=== PATIENT | male | born 1965 | race Hispanic/Latino ===

== ENCOUNTER 2018-01-18 10:06 | Inpatient (IN) | payer BC, OTHER ==
[2018-01-18] MEDS ORDERED: HEPA 1000U/500MLS 1,000 UNIT/500 ML BAG IV ONE ×2 (10:18→11:59)
[2018-01-18] MEDS ORDERED: HEPARIN/D5W 25,000 UNIT/500 ML BAG IV ONE (10:18)
[2018-01-18] MEDS ORDERED: NICARDIPINE HCL 25 MG/10 ML IV ONE (10:18)
[2018-01-18] MEDS ORDERED: HEPARIN 5000 UNIT/ML 1 ML VIAL ONE ×2 (10:18)
[2018-01-18] MEDS ORDERED: NA CHLORIDE 0.9% 0 ML ONE (10:18)
[2018-01-18] MEDS ORDERED: ASPIRIN 81 MG CHEWABLE TABLET ONE (10:20)
[2018-01-18] MEDS ORDERED: NA CHLORIDE 0.9% 1,000 ML ONE (10:20)
--- NOTE | 2018-01-18 10:20 | EDPHYS ---
Physician Documentation [facility] Name: Calos Oliveira Age: 52 yrs Sex: Male : 1965 Arrival Date: 01/18/2018 Time: 10:07 Bed 4 Private MD: Out, [facility] ED Physician Earle Hooper HPI: 01/18 10:14 This 52 yrs old Male presents to ER via Unassigned with complaints of Chest hank Pain > 30 y/o. 10:14 The patient or guardian reports chest pain that is located primarily in the substernal hank area. Onset: just prior to arrival. The pain does not radiate. Associated signs and symptoms: The patient has no apparent associated signs or symptoms. The chest pain is described as a heaviness, a pressure. Duration: The patient or guardian reports a single episode, that is still ongoing. Modifying factors: The symptoms are alleviated by nothing. the symptoms are aggravated by nothing. Severity of pain: At its worst the pain was moderate in the emergency department the pain is unchanged. The patient has not experienced similar symptoms in the past. Historical: - Allergies: 10:18 No Known Allergies; ss - PMHx: 10:18 CAD; High Cholesterol; Hypertension; ss - Immunization history:: Adult Immunizations up to date. - Social history:: The patient lives Smoking status: Patient/guardian denies using tobacco. - Ebola Screening: : Patient denies exposure to infectious person Patient denies travel to an Ebola-affected area in the 21 days before illness onset. ROS: 10:14 Constitutional: Negative for fever, chills, and weight loss, Eyes: Negative for injury, hank pain, redness, and discharge, ENT: Negative for injury, pain, and discharge, Neck: Negative for injury, pain, and swelling, Respiratory: Negative for shortness of breath, cough, wheezing, and pleuritic chest pain, Abdomen/GI: Negative for abdominal pain, nausea, vomiting, diarrhea, and constipation, Back: Negative for injury and pain, : Negative for injury, bleeding, discharge, and swelling, MS/Extremity: Negative for injury and deformity, Skin: Negative for injury, rash, and discoloration, Neuro: Negative for headache, weakness, numbness, tingling, and seizure, Psych: Negative for depression, anxiety, suicide ideation, homicidal ideation, and hallucinations, Allergy/Immunology: Negative for hives, rash, and allergies, Endocrine: Negative for neck swelling, polydipsia, polyuria, polyphagia, and marked weight changes, Hematologic/Lymphatic: Negative for swollen nodes, abnormal bleeding, and unusual bruising. 10:14 Cardiovascular: Positive for chest pain, of the chest. Exam: 10:14 Constitutional: This is a well developed, well nourished patient who is awake, alert, hank and in no acute distress. Head/Face: Normocephalic, atraumatic. Eyes: Pupils equal round and reactive to light, extra-ocular motions intact. Lids and lashes normal. Conjunctiva and sclera are non-icteric and not injected. Cornea within normal limits. Periorbital areas with no swelling, redness, or edema. ENT: Nares patent. No nasal discharge, no septal abnormalities noted. Tympanic membranes are normal and external auditory canals are clear. Oropharynx with no redness, swelling, or masses, exudates, or evidence of obstruction, uvula midline. Mucous membranes moist. Neck: Trachea midline, no thyromegaly or masses palpated, and no cervical lymphadenopathy. Supple, full range of motion without nuchal rigidity, or vertebral point tenderness. No Meningismus. Chest/axilla: Normal chest wall appearance and motion. Nontender with no deformity. No lesions are appreciated. Cardiovascular: Regular rate and rhythm with a normal S1 and S2. No gallops, murmurs, or rubs. Normal PMI, no JVD. No pulse deficits. Respiratory: Lungs have equal breath sounds bilaterally, clear to auscultation and percussion. No rales, rhonchi or wheezes noted. No increased work of breathing, no retractions or nasal flaring. Abdomen/GI: Soft, non-tender, with normal bowel sounds. No distension or tympany. No guarding or rebound. No evidence of tenderness throughout. Back: No spinal tenderness. No costovertebral tenderness. Full range of motion. Male : Normal genitalia with no discharge or lesions. Skin: Warm, dry with normal turgor. Normal color with no rashes, no lesions, and no evidence of cellulitis. MS/ Extremity: Pulses equal, no cyanosis. Neurovascular intact. Full, normal range of motion. Neuro: Awake and alert, GCS 15, oriented to person, place, time, and situation. Cranial nerves II-XII grossly intact. Motor strength 5/5 in all extremities. Sensory grossly intact. Cerebellar exam normal. Normal gait. Psych: Awake, alert, with orientation to person, place and time. Behavior, mood, and affect are within normal limits. Vital Signs: 10:11 Weight 108.86 kg; Height 5 ft. 7 in. (170.18 cm); Pain 8/10; ss 10:17 BP 177 / 117; Pulse 85; Resp 18; Pulse Ox 100% on 2 lpm NC; hj 10:40 BP 161 / 99; Pulse 88; Resp 22; Pulse Ox 100% on 2 lpm NC; Pain 6/10; sv 10:11 Body Mass Index 37.59 (108.86 kg, 170.18 cm) ss MDM: 10:11 Patient medically screened. [facility] 10:14 Data reviewed: vital signs, nurses notes, lab test result(s), EKG, radiologic studies, hank plain films. 01/18 10:14 Order name: Basic Metabolic Panel [facility] 01/18 10:14 Order name: CBC with Diff [facility] 01/18 10:14 Order name: Ckmb [facility] 01/18 10:14 Order name: CPK [facility] 01/18 10:14 Order name: LFT's [facility] 01/18 10:14 Order name: Magnesium [facility] 01/18 10:14 Order name: NT PRO-BNP [facility] 01/18 10:14 Order name: PT-INR [facility] 01/18 10:14 Order name: Ptt, Activated [facility] 01/18 10:14 Order name: Troponin (emerg Dept Use Only) [facility] 01/18 10:14 Order name: XRAY Chest (1 view) [facility] 01/18 10:48 Order name: RAD EDAR 01/18 10:14 Order name: EKG; Complete Time: 10:15 [facility] 01/18 10:14 Order name: Cardiac monitoring [facility] 01/18 10:14 Order name: EKG - Nurse/Tech [facility] 01/18 10:14 Order name: IV Saline Lock [facility] 01/18 10:14 Order name: Labs collected and sent [facility] 01/18 10:14 Order name: O2 Per Protocol [facility] 01/18 10:14 Order name: O2 Sat Monitoring [facility] 01/18 10:14 Order name: Urine Dipstick-Ancillary (obtain specimen) [facility] 01/18 10:25 Order name: CONS Physician Consult EDMS Administered Medications: 10:20 Drug: NS 0.9% 1000 ml Route: IV; Rate: 1 bolus; Site: left antecubital; sv 10:20 Drug: Aspirin Chewable Tablet 324 mg Route: PO; sv 10:20 Drug: Heparin ([place]-Bolus No thrombolytic) - HEParin 60 units/kg {Co-Signature: ss sv (Aretha Pearson RN).} Route: IVP; Site: left antecubital; 10:20 Drug: Heparin ([place] Drip) 12 units/kg/hr - (HEParin 72066 units, D5W 500 ml) sv {Co-Signature: ss (Aretha Pearson RN).} Route: IV; Rate: calculated rate; Site: left antecubital; 10:28 Drug: Zofran 4 mg Route: IVP; Site: right antecubital; sv 10:30 Drug: morphine 4 mg Route: IVP; Site: right antecubital; sv 10:34 Drug: Effient 60 mg Route: PO; sv Disposition: 01/18/18 10:20 Hospitalization ordered by Sammi Abraham for Inpatient Admission. Preliminary diagnosis is ST elevation (STEMI) myocardial infarction of inferior wall. - Bed requested for Intensive Care Unit. - Status is Inpatient Admission. sv - Condition is Serious. - Problem is new. - Symptoms have improved. UTI on Admission? No Signatures: Dispatcher [employer] EDMS Gisselle Woodward RN RN sv Anderson, Corey, MD MD cha Smirch, Shelby, RN RN ss Aretha Pearson RN ss Corrections: (The following items were deleted from the chart) 10:53 10:20 Hospitalization Ordered by Sammi Abraham MD for Inpatient Admission. Preliminary sv diagnosis is ST elevation (STEMI) myocardial infarction of inferior wall. Bed requested for Intensive Care Unit. Status is Inpatient Admission. Condition is Serious. Problem is new. Symptoms have improved. UTI on Admission? No. hank
--- NOTE | 2018-01-18 10:20 | ER ---
Nurse's Notes [facility] Name: Calos Oliveira Age: 52 yrs Sex: Male : 1965 Arrival Date: 01/18/2018 Time: 10:07 Bed 4 Private MD: Out, [facility] Diagnosis: ST elevation (STEMI) myocardial infarction of inferior wall Presentation: 01/18 10:08 Presenting complaint: Patient states: substernal chest pain that began approx 45 ss minutes ago. Pt reports a history of cardiac stents and states that he has taken 81mg ASA, blood pressure and cholesterol medication today. Transition of care: patient was not received from another setting of care. Onset of symptoms was January 18, 2018. Risk Assessment: Do you want to hurt yourself or someone else? Patient reports no desire to harm self or others. Initial Sepsis Screen: Does the patient meet any 2 criteria? No. Patient's initial sepsis screen is negative. Does the patient have a suspected source of infection? No. Patient's initial sepsis screen is negative. Care prior to arrival: None. 10:08 Method Of Arrival: Ambulatory ss 10:08 Acuity: PATRICIA 1 ss Historical: - Allergies: 10:18 No Known Allergies; ss - PMHx: 10:18 CAD; High Cholesterol; Hypertension; ss - Immunization history:: Adult Immunizations up to date. - Social history:: The patient lives Smoking status: Patient/guardian denies using tobacco. - Ebola Screening: : Patient denies exposure to infectious person Patient denies travel to an Ebola-affected area in the 21 days before illness onset. Screenin:20 Abuse screen: Denies threats or abuse. Denies injuries from another. Nutritional sv screening: No deficits noted. Tuberculosis screening: No symptoms or risk factors identified. Fall Risk None identified. Assessment: 10:08 General: Appears distressed, uncomfortable, obese, Behavior is cooperative, Denies ss fever, feeling ill. Pain: Complains of pain in chest Pain does not radiate. Pain currently is 8 out of 10 on a pain scale. 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 Cardiovascular: Pulses are palpable in right radial artery and left radial artery. Respiratory: Airway is patent Trachea midline Respiratory effort is even, labored, Respiratory pattern is symmetrical, tachypnea. GI: Patient currently denies abdominal pain, diarrhea, nausea, vomiting. GI: Abdomen is round non-distended. EENT: Oral mucosa is moist. Throat is clear. Derm: Skin is clammy, Skin temperature is cool. 10:20 General: Appears distressed, uncomfortable, well developed, Behavior is cooperative. sv Pain: Complains of pain in chest Pain currently is 9 out of 10 on a pain scale. Quality of pain is described as sharp, Is continuous. Neuro: Level of Consciousness is awake, alert, obeys commands, Oriented to person, place, time, situation, Moves all extremities. Full function. Cardiovascular: Patient's skin is warm and dry. Pulses are 3+ in right radial artery and left radial artery. Respiratory: Respiratory effort is even, labored, Respiratory pattern is symmetrical, tachypnea. Derm: Skin is normal. Musculoskeletal: Range of motion: intact in all extremities. 10:48 Reassessment: Patient appears in no apparent distress at this time. Patient and/or sv family updated on plan of care and expected duration. Pain level reassessed. Patient is alert, oriented x 3, equal unlabored respirations, skin warm/dry/pink. Pain: Pain currently is 6 out of 10 on a pain scale. Vital Signs: 10:11 Weight 108.86 kg; Height 5 ft. 7 in. (170.18 cm); Pain 8/10; ss 10:17 BP 177 / 117; Pulse 85; Resp 18; Pulse Ox 100% on 2 lpm NC; hj 10:40 BP 161 / 99; Pulse 88; Resp 22; Pulse Ox 100% on 2 lpm NC; Pain 6/10; sv 10:11 Body Mass Index 37.59 (108.86 kg, 170.18 cm) ED Course: 10:07 Patient arrived in ED. sb2 10:07 Out, [facility] is Private Physician. sb2 10:11 Earle Hooper MD is Attending Physician. hank 10:17 Triage completed. 10:17 Initial lab(s) drawn, by me, sent to lab. Inserted saline lock: 22 gauge in left hj antecubital area, using aseptic technique. Blood collected. 10:19 Sammi Abraham MD is Hospitalizing Provider. hank 10:20 Missed attempt(s): 20 gauge in right antecubital area. mh5 10:20 Oxygen administration via nasal cannula \T\ 2L/min. sv 10:20 Arm band placed on right wrist. sv 10:22 Gisselle Woodward RN is Primary Nurse. sv 10:22 Inserted saline lock: 20 gauge in right antecubital area, using aseptic technique. sv ,using aseptic technique. done by Aretha MIX. 10:22 EKG done, by manager technology. reviewed by Earle Hooper MD. at1 10:25 Patient has correct armband on for positive identification. Placed in gown. Bed in low mh5 position. Call light in reach. Side rails up X 1. Adult w/ patient. conveyor monitor on. Pulse ox on. NIBP on. 10:36 X-ray completed. Portable x-ray completed in exam room. Patient tolerated procedure mh1 well. 10:45 Surgical consent explained by staff, explained by physician, signed by patient. sv 10:50 No provider procedures requiring assistance completed. Patient admitted, IV remains in sv place. intact. Administered Medications: 10:20 Drug: NS 0.9% 1000 ml Route: IV; Rate: 1 bolus; Site: left antecubital; sv 10:20 Drug: Aspirin Chewable Tablet 324 mg Route: PO; sv 10:20 Drug: Heparin ([place]-Bolus No thrombolytic) - HEParin 60 units/kg {Co-Signature: ss sv (Aretha Pearson RN).} Route: IVP; Site: left antecubital; 10:20 Drug: Heparin ([place] Drip) 12 units/kg/hr - (HEParin 81927 units, D5W 500 ml) sv {Co-Signature: ss (Aretha Pearson RN).} Route: IV; Rate: calculated rate; Site: left antecubital; 10:28 Drug: Zofran 4 mg Route: IVP; Site: right antecubital; sv 10:30 Drug: morphine 4 mg Route: IVP; Site: right antecubital; sv 10:34 Drug: Effient 60 mg Route: PO; sv Outcome: 10:20 Decision to Hospitalize by Provider. hank 10:50 Admitted to Operations Dispatcher accompanied by nurse, accompanied by tech, family with patient, sv via stretcher, with oxygen, on monitor, with chart. 10:50 Condition: improved 10:50 Instructed on the need for admit. 10:53 Patient left the ED. sv Signatures: Gisselle Woodward RN RN sv Anderson, Corey, MD MD cha Harvey, Martha 1 Aretha Pearson, DOMINGUEZ RN ss Rupinder gomez, affirmative action officer EKG Tat1 Charbel Olea RN RN Carie Farmer 5 Ledy Macias 2 Aretha Pearson RN
[2018-01-18 10:26] LABS: Absolute Lymphocytes (CBC) 2.2 K/uL (0.7-4.9); Absolute Monocytes 0.7 K/uL (0.1-1.3); Absolute Neutrophil 6.9 K/uL (1.8-8.0); Basophils % 0.9 % (0-1.3); Eosinophils % 1.6 % (0-4.4); Hematocrit 43.6 % (39.6-49.0); MCV 88.2 fL (80-100); MPV 8.8 fL (7.6-11.3); Monocytes % 7.1 % (3.3-12.3); RBC Red Blood Cell Count 4.95 M/uL (4.33-5.43)
[2018-01-18] MEDS ORDERED: ONDANSETRON 4 MG/2 ML VIAL ONE (10:28)
[2018-01-18] MEDS ORDERED: MORPHINE 4 MG/ML SYR ONE (10:28)
[2018-01-18] MEDS ORDERED: MIDAZOLAM HCL 2 MG/2 ML INJ ONE (10:41)
[2018-01-18] MEDS ORDERED: FENTANYL CITR 100 MCG/2 ML ONE (10:41)
[2018-01-18] MEDS ORDERED: LIDOCAINE 1% MPF 2 ML AMPULE ONE (10:41)
[2018-01-18 10:44] LABS: Protime INR 0.99
[2018-01-18 10:47] LABS: Albumin 4.4 g/dL (3.4-5.0); Bilirubin Direct 0.2 mg/dL (0-0.2); Bilirubin Total 0.7 mg/dL (0.2-1.0); CKMB Creatine Kinase MB 1.4 ng/mL (0.3-3.6); Potassium 3.6 mmol/L (3.5-5.1); Protein, Total 8.2 g/dL (6.4-8.2)
--- NOTE | 2018-01-18 10:47 | RAD REPORT ---
EXAM DESCRIPTION: RAD - Chest Single View - 01/18/2018 10:39 am CLINICAL HISTORY: CHEST PAIN Chest pain. COMPARISON: CHEST SINGLE VIEW dated 10/14/2010 FINDINGS: Portable technique limits examination quality. The lungs are grossly clear. The heart is normal in size. No displaced fractures. IMPRESSION: No acute intrathoracic process suspected.
[2018-01-18] MEDS ORDERED: NA CHLORIDE 0.9% 50 ML ONE (11:47)
--- NOTE | 2018-01-18 11:59 | CON ---
Identification: A 52-year-old man. History Of Present Illness: Mr. Oliveira started having chest pain today about 8:00 a.m. He came to the emergency room where EKGs showed acute inferior NH, ST elevation in leads II, III, AVF. He has a history of diabetes, hypertension, and a history of a right coronary stent in June 2016, so roug hly a year and a half ago. About 6 months ago, he was allowed to stop taking Plavix. He has done we ll. About 3 months ago, he passed a stress test. He has underlying diabetes, hypertension, dyslipid emia. Allergies: HE DOES NOT HAVE ANY KNOWN ALLERGIES. DENIES ANY ALLERGY TO X-RAY CONTRAST MATERIAL. HE IS READY TO HAVE ANOTHER HEART CATH. HE UNDERSTANDS THE PROCEDURE, ITS POTENTIAL BENEFITS, INDICA TIONS, RISKS, AND AGREES TO PROCEED. HE UNDERSTANDS HE IS HAVING A HEART ATTACK THAT WE RECOMMEND TR EATING WITH AN ACUTE CORONARY INTERVENTION. Physical Examination: Vital Signs: His blood pressure is 160/77, heart rate 80. Lungs: Clear. Heart: Within normal limits. The patient appears to be in distress, uncomfortable, tight in the marlena st, and heavy. Extremities: Slightly cool, not clammy. Distal pulses are palpable. Impression: The patient needs an acute cardiac cath and some method to open his artery. We will pro bably put a stent within an old stent. Thank you very much for your kind referral of Mr. Oliveira. I will follow him with you. KEVIN Voice ID: [id number] Report ID: [id number]
[2018-01-18] MEDS ORDERED: NITROGLYCERIN/D5W 25 MG/250 ML BTL IV ONE (12:05)
--- NOTE | 2018-01-18 12:35 | OP ---
Surgeon: Brien Martinez MD Procedures: Left heart catheterization, coronary angiography, percutaneous coronary intervention, pl ain old balloon angioplasty of proximal right coronary, and intracoronary stenting of the left anteri or descending LAD. Indication: ST-elevation NC. Findings: The patient had a thrombus within his proximal RCA stent. It was ballooned. There was a gradient caused by catheter insertion into the stent. The stent was really an ostial stent placed in June 2016, and after ballooning the gradient went away, the thrombus went away, excellent angiogr aphically, so we decided not to re-stent it. The LAD had a long 70-80% lesion, so that was stented T amanda. Two stents were deployed, a 3.0 x 24 and a 3.0 x 12 for a total of 36 mm of stents in the mid LAD. The angiographic result after all of this was 0% residual stenosis. No thrombus. GAB-3 flow. There was some coronary spasm distal to the LAD stent that went away with intracoronary nitro 100 m cg. Procedure In Detail: The patient had chest pain, came to the ER, had ST elevation in the inferior le ads, brought to the cardiac optical laboratory manager in an emergency status. Have to be fasting. Sedated with Versed and fentanyl. He had been treated with prasugrel 60 mg on arrival to the ER. Right femoral artery was entered after sterile prep and drape, and after anesthesia of the groin tissues, it was entered w ith an 18-gauge needle, modified Seldinger technique, 6-Djiboutian sheath. We used a 3DRC to angiogram t he right, JL4 to angiogram the left. Then we used a guide catheter for the right. A 3DRC with side holes entered the artery well. A [place] wire was passed across the lesion. A 3.0 x 15 Emerge balloo n was inflated to 14 atmospheres. Excellent angiographic result with resolution of thrombus and ches t pain. We then turned our attention to the LAD. We used an XBLAD 3.5 with side holes. We used Cou gar wire again. A 3.0 x 15 Emerge was used to pre-dilate. After adequate pre-dilation, we deployed a 3.0 x 24 stent across the most distal part of the lesion. There was still some proximal lesion lef t, so we deployed a 3.0 x 12. The angiographic result was excellent. GAB flow 3. No spasm after i ntracoronary nitro. At the end of the procedure, an angiogram was done of the right femoral artery t hrough the 6-Djiboutian sheath. This allowed us to deploy an Angio-Seal to close. During the procedure, used Angiomax. We demonstrated an activated clotting time over 300. At the end of the procedure, A ngiomax was turned off, and a StarClose will be deployed after the activated clotting time is around 250. No complications from the procedure. BRENDA/OLEG Voice ID: [id number] Report ID: [id number]
[2018-01-18] MEDS ORDERED: ONDANSETRON 4 MG/2 ML VIAL IV PRN (13:22)
[2018-01-18] MEDS ORDERED: ACETAMINOPHEN 500 MG TAB PO PRN (13:22)
--- NOTE | 2018-01-18 13:24 | EKG ---
Test Date: 2018-01-18 Test Time: 10:07:21 Videogame Designer: GASTON MEASUREMENT RESULTS: Intervals: Rate: 100 SD: 146 QRSD: 86 QT: 358 QTc: 461 [place]: P: 55 SD: 146 QRS: 61 T: 61 INTERPRETIVE STATEMENTS: Normal sinus rhythm ST elevation, consider inferolateral injury or acute infarct ACUTE NE Consider right ventricular involvement in acute inferior infarct Abnormal ECG Compared to ECG 07/28/2016 10:58:23 ST (T wave) deviation now present Myocardial infarct finding now present Myocardial infarct finding now present Electronically Signed On 01-18-18 13:23:21 CDT by Brien Martinez
--- NOTE | 2018-01-18 15:15 | P.HP ---
Certification for Inpatient Patient admitted to: Inpatient With expected LOS: >2 Midnights Patient will require the following post-hospital care: None Practitioner: I am a practitioner with admitting privileges, knowledge of patient current condition, hospital course, and medical plan of care. Services: Services provided to patient in accordance with Admission requirements found in Title 42 Section 412.3 of the Code of Federal Regulations Patient History Date of Service: 01/18/18 Reason for admission: STEMI History of Present Illness: This is a 52-year-old male with significant past medical history of hypertension , diabetes, CAD, hyperlipidemia who presented to the ED complaining of having some chest pain that started about 8:00 a.m. this morning. Patient came to the emergency room an EKG was concerning for ST elevation and thus cardiology was consulted the medially. Patient of note has a right coronary cauterization done and had a stent placement in June 2016. At that time he was started on aspirin and Plavix along with beta-hansa and statin. Patient stop taking his Plavix about 6 months ago as per recommendations by his other fox farmer. He was doing overall well and then started having some chest pain that was radiating down his left arm in the substernal region. Patient also had associated shortness of breath and a little bit of nausea. No other complaints to offer at this time. Allergies No Known Allergies Allergy (Verified 07/28/16 10:47) Home Medications: Atorvastatin Calcium [Lipitor] 40 mg PO BEDTIME 07/29/16 Icosapent Ethyl [Vascepa] 2 gm PO BID 07/29/16 Metformin HCl [Glucophage] 500 mg PO BID 07/29/16 Metoprolol Succinate [Toprol Xl] 100 mg PO BID 07/29/16 Pantoprazole Sodium [Protonix] 40 mg PO DAILY 07/29/16 Aspirin [Aspir-Low] 81 mg PO BEDTIME 01/18/18 Losartan Potassium 12.5 mg PO DAILY 01/18/18 - Past Medical/Surgical History Has patient received pneumonia vaccine in the past: Yes Diabetic: Yes -: CAD -: High Cholesterol -: HTN -: DM -: Right Coronary Stent 2016 -: Hip Replacement 2011 - Family History Family History: Reviewed- Non-Contributory - Family History Mother -: Cancer Notes: breast CA - Social History Smoking Status: Former smoker Alcohol use: Yes CD- Drugs: No Caffeine use: Yes Place of Residence: Home Review of Systems General: As per HPI Physical Examination - Vital Signs Blood Pressure: 161/99 Pulse: 88 Respirations: 22 - Physical Exam General: Alert, Oriented x3, Severe distress HEENT: Atraumatic Neck: Supple, 2+ carotid pulse no bruit, No LAD, Without JVD or thyroid abnormality Respiratory: Clear to auscultation bilaterally, Normal air movement Cardiovascular: Regular rate/rhythm, Normal S1 S2 Gastrointestinal: Normal bowel sounds, No tenderness Musculoskeletal: No tenderness Integumentary: No rashes Neurological: Normal gait, Normal speech, Normal strength at 5/5 x4 extr, Normal tone, Normal affect Lymphatics: No axilla or inguinal lymphadenopathy - Studies Laboratory Data (last 24 hrs) 01/18/18 10:15: PT 11.7, INR 0.99, APTT 27.8 01/18/18 10:15: WBC 10.1, Hgb 14.8, Hct 43.6, Plt Count 285 01/18/18 10:15: Sodium 140, Potassium 3.6, BUN 20 H, Creatinine 1.20, Glucose 135 H, Magnesium 2.0, Total Bilirubin 0.7, AST 32, ALT 64, Alkaline Phosphatase 96 Assessment and Plan - Problems (Diagnosis) (1) STEMI (ST elevation myocardial infarction) Current Visit: Yes Status: Acute Plan: This patient presenting to the ER with chest pain, EKG with ST elevation in in the inferior leads, troponin x1 negative. -cardiology consulted in the ER. Will be seeing patient here shortly. Patient will be taken to the heart catheterization. -Will follow up with cardiology postprocedure. -The patient will be started on aspirin beta-hansa statin and Effient and post procedures well. Qualifiers: Involved coronary artery: right coronary artery Qualified Code(s): I21.11 - ST elevation (STEMI) myocardial infarction involving right coronary artery (2) HTN (hypertension) Current Visit: Yes Status: Chronic Plan: Stable at this time. Patient currently takes metoprolol and losartan at home will restart here in the hospital Qualifiers: Hypertension type: essential hypertension Qualified Code(s): I10 - Essential (primary) hypertension (3) Diabetes Current Visit: Yes Status: Chronic Plan: Will place patient on insulin sliding scale at this time Qualifiers: Diabetes mellitus type: type 2 Diabetes mellitus terminal gauger supervisor insulin use: without terminal gauger supervisor use Diabetes mellitus complication status: without complication Qualified Code(s): E11.9 - Type 2 diabetes mellitus without complications (4) Hyperlipidemia Current Visit: Yes Status: Chronic Plan: Patient will be on Lipitor 80 mg daily at this time. Qualifiers: Hyperlipidemia type: mixed hyperlipidemia Qualified Code(s): E78.2 - Mixed hyperlipidemia (5) CAD (coronary artery disease) Onset Date: 07/30/16 Current Visit: No Status: Acute Plan: Patient had a stent placement back in June 2016. Had a recent stress test done about 3 months ago which was negative. Patient was initially on aspirin and Plavix after the stent placed in but stopped taking it about 6 months ago as a cardiology is the recommended. Qualifiers: Coronary Disease-Associated Artery/Lesion type: [place] artery [place] vs. transplanted heart: [place] heart Associated angina: with unstable angina Qualified Code(s): I25.110 - Atherosclerotic heart disease of [place] coronary artery with unstable angina pectoris Discharge Plan: Home Plan to discharge in: 72 Hours - Advance Directives Does patient have a Living Will: No Does patient have a Durable POA for Healthcare: No - Code Status/Comfort Care Code Status Assessed: Yes Critical Care: Yes
[2018-01-18] MEDS: LOSARTAN POTASSIUM 50 MG TABLET PO SCH (15:50)
[2018-01-18] MEDS: PANTOPRAZOLE 40MG TABLET PO SCH (15:50)
--- NOTE | 2018-01-18 16:37 | ECHO ---
HEIGHT: 5 ft 7 in WEIGHT: 237 lb 0 oz DATE OF STUDY: 01/18/[address]: Sammi Abraham MD 2-DIMENSIONAL: YES M.MODE: YES DOPPLER: YES COLOR FLOW: YES TDS: NO PORTABLE: YES DEFINITY: NO BUBBLE STUDY: NO DIAGNOSIS: NSTEMI CARDIAC HISTORY: CATHERIZATION: YES SURGERY: NO PROSTHETIC VALVE: NO PACEMAKER: NO MEASUREMENTS (cm) DIASTOLIC (NORMALS) SYSTOLIC (NORMALS) IVSd 0.8 (0.6-1.2) LA Diam 3.8 (1.9-4.0) LVEF 69% LVIDd 4.7 (3.5-5.7) LVIDs 2.9 (2.0-3.5) %FS 39% LVPWd 1.0 (0.6-1.2) Ao Diam 2.9 (2.0-3.7) 2 DIMENSIONAL ASSESSMENT: RIGHT ATRIUM: NORMAL LEFT ATRIUM: NORMAL RIGHT VENTRICLE: NORMAL LEFT VENTRICLE: NORMAL TRICUSPID VALVE: NORMAL MITRAL VALVE: NORMAL PULMONIC VALVE: NORMAL AORTIC VALVE: NORMAL PERICARDIAL EFFUSION: NONE AORTIC ROOT: NORMAL LEFT VENTRICULAR WALL MOTION: NORMAL DOPPLER/COLOR FLOW: MILD MITRAL AND TRICUSPID REGURGITATION. NORMAL RIGHT VENTRICULAR SYSTOLIC PRESSURE. COMMENTS: NORMAL 2D ECHOCARDIOGRAM. NORMAL SEQUENTAL WALL MOTION. MILD MITRAL AND TRICUSPID REGURGITATION. TECHNOLOGIST: Maxime AYALA
[2018-01-18] MEDS: METOPROLOL XL 100 MG TAB PO SCH (20:54)
[2018-01-18] MEDS ORDERED: ATORVASTATIN 40 MG TAB PO SCH (21:00)
[2018-01-18] MEDS ORDERED: ATORVASTATIN 80 MG TAB PO SCH (21:00)
[2018-01-19 05:14] LABS: Absolute Lymphocytes (CBC) 1.8 K/uL (0.7-4.9); Absolute Monocytes 0.9 K/uL (0.1-1.3); Absolute Neutrophil 5.5 K/uL (1.8-8.0); Basophils % 0.6 % (0-1.3); Eosinophils % 3.8 % (0-4.4); Hematocrit 39.4 % (39.6-49.0); Lymphocytes % 20.9 % (15.3-44.8); MCH 30.4 pg (27.0-35.0); MCV 88.8 fL (80-100); MPV 8.6 fL (7.6-11.3); RBC Red Blood Cell Count 4.44 M/uL (4.33-5.43)
[2018-01-19 05:20] LABS: Protime INR 0.98
[2018-01-19 05:53] LABS: ALT/SGPT 51 U/L (12-78); AST/SGOT 45 U/L (15-37); Albumin 3.6 g/dL (3.4-5.0); Alkaline Phosphatase 73 U/L (45-117); BUN Blood Urea Nitrogen 17 mg/dL (7-18); Bicarbonate 24 mmol/L (21-32); Bilirubin Total 0.9 mg/dL (0.2-1.0); Glucose Level 109 mg/dL (74-106); HDL Cholesterol 32 mg/dL (40-60); LDL Cholesterol, Calculated 97 (<130); Magnesium 2.3 mg/dL (1.8-2.4); Phosphorus 2.4 mg/dL (2.5-4.9); Potassium 3.7 mmol/L (3.5-5.1); Protein, Total 6.9 g/dL (6.4-8.2); Sodium Level 139 mmol/L (136-145)
[2018-01-19 05:55] LABS: CKMB Creatine Kinase MB 15.6 ng/mL (0.3-3.6)
[2018-01-19] MEDS ORDERED: METOPROLOL TAR 50 MG TAB PO SCH (06:00)
[2018-01-19] MEDS: PANTOPRAZOLE 40MG TABLET PO SCH (07:35)
[2018-01-19] MEDS: POTASS/SODIUM PHOSPHATE 1 PKT POWD.PACK PO SCH ×3 (07:35→09:11)
[2018-01-19] MEDS: METOPROLOL XL 100 MG TAB PO SCH (08:28)
[2018-01-19] MEDS: LOSARTAN POTASSIUM 50 MG TABLET PO SCH (08:29)
[2018-01-19] MEDS ORDERED: PRASUGREL (EFFIENT) 10 MG TAB PO SCH ×2 (09:00)
[2018-01-19] MEDS ORDERED: ASPIRIN EC 81 MG TAB PO SCH (09:00)
[2018-01-19] MEDS ORDERED: LOSARTAN POTASSIUM 12.5 MG PO SCH (09:00)
[2018-01-19] MEDS ORDERED: POTASSIUM CL SA 10 MEQ TAB PO ONE (09:00)
--- NOTE | 2018-01-19 10:07 | P.DS ---
Admission Date: 01/18/18 Discharge Date: 01/19/18 Primary Care Provider: Dr. Reyes; Cardiology-Dr. Delaney Disposition: ROUTINE DISCHARGE Discharge Condition: GOOD Reason for Admission: STEMI Consultations: Cardiology-Dr. Martinez/Dr. Delaney Procedures: Echocardiogram: Ejection fraction 69%.LEFT VENTRICULAR WALL MOTION: NORMAL DOPPLER/COLOR FLOW: MILD MITRAL AND TRICUSPID REGURGITATION. NORMAL RIGHT VENTRICULAR SYSTOLIC PRESSURE. COMMENTS: NORMAL 2D ECHOCARDIOGRAM. NORMAL SEQUENTAL WALL MOTION. MILD MITRAL AND TRICUSPID REGURGITATION Heart catheterization: Surgeon: Brien Martinez MD Procedures: Left heart catheterization, coronary angiography, percutaneous coronary intervention, plain old balloon angioplasty of proximal right coronary , and intracoronary stenting of the left anterior descending LAD. Indication: ST-elevation CO. Findings: The patient had a thrombus within his proximal RCA stent. It was ballooned. There was a gradient caused by catheter insertion into the stent. The stent was really an ostial stent placed in June 2016, and after ballooning the gradient went away, the thrombus went away, excellent angiographically, so we decided not to re-stent it. The LAD had a long 70-80% lesion, so that was stented Today. Two stents were deployed, a 3.0 x 24 and a 3.0 x 12 for a total of 36 mm of stents in the mid LAD. The angiographic result after all of this was 0% residual stenosis. No thrombus. GAB-3 flow. There was some coronary spasm distal to the LAD stent that went away with intracoronary nitro 100 mcg. - Problems (1) STEMI (ST elevation myocardial infarction) Onset Date: 01/19/18 Current Visit: Yes Status: Acute Qualifiers: Involved coronary artery: right coronary artery Qualified Code(s): I21.11 - ST elevation (STEMI) myocardial infarction involving right coronary artery (2) Diabetes Onset Date: 01/19/18 Current Visit: Yes Status: Chronic Qualifiers: Diabetes mellitus type: type 2 Diabetes mellitus group home insulin use: without terminal makeup operator use Diabetes mellitus complication status: without complication Qualified Code(s): E11.9 - Type 2 diabetes mellitus without complications (3) HTN (hypertension) Onset Date: 01/19/18 Current Visit: Yes Status: Chronic Qualifiers: Hypertension type: essential hypertension Qualified Code(s): I10 - Essential (primary) hypertension (4) Hyperlipidemia Onset Date: 01/19/18 Current Visit: Yes Status: Chronic Qualifiers: Hyperlipidemia type: mixed hyperlipidemia Qualified Code(s): E78.2 - Mixed hyperlipidemia (5) CAD (coronary artery disease) Onset Date: 07/30/16 Current Visit: No Status: Acute Qualifiers: Coronary Disease-Associated Artery/Lesion type: [place] artery [place] vs. transplanted heart: [place] heart Associated angina: with unstable angina Qualified Code(s): I25.110 - Atherosclerotic heart disease of [place] coronary artery with unstable angina pectoris (6) Unstable angina Onset Date: 07/30/16 Current Visit: No Status: Acute (7) GERD (gastroesophageal reflux disease) Current Visit: Yes Status: Chronic Qualifiers: Esophagitis presence: esophagitis presence not specified Qualified Code(s) : K21.9 - Gastro-esophageal reflux disease without esophagitis (8) Obesity Current Visit: Yes Status: Chronic Qualifiers: Obesity type: due to excess calories Obesity classification: adult class 2 (BMI 35 - 39.9) Serious obesity comorbidity presence: with serious comorbidity Body mass index: BMI 36.0-36.9 Qualified Code(s): E66.01 - Morbid (severe) obesity due to excess calories; Z68.36 - Body mass index (BMI) 36.0-36.9, adult Brief History of Present Illness: 52-year-old male presented emergency room with chest pain. Patient with history of hypertension, diabetes, hyperlipidemia and previous stent in June 2016. Patient found to have acute inferior CO with ST elevation in leads 2, 3 and AVF. Patient was admitted for treatment. Cardiology was consulted. Hospital Course: During the course of his stay the patient was treated for his acute inferior wall CO. Heart catheterization was done. Procedures included left heart catheterization, Coronary angiography, percutaneous coronary intervention, plain old balloon angioplasty of proximal right coronary, and intracoronary stenting of the left anterior descending LAD. Patient was found to have a thrombus within the proximal RCA stent. It was ballooned. Thrombus went away, excellent angiographically, so no re stent was needed to the ostial stent. LAD had a long 70-80% lesion. This was stented. 2 stents were deployed. Patient tolerated procedure well. Patient remained in ICU. Patient denied any significant chest pain thereafter. At discharge patient will continue with Effient 10 mg daily, aspirin 81 mg daily, Lipitor 80 mg daily, Cozaar 12.5 mg daily and Metoprolol 100 mg one pill twice daily. He will follow up with Cardiology in 2 weeks. Patient has hypertension. Recommendation is to continue with Cozaar 12.5 mg 1 pill daily and metoprolol 100 mg 1 pill twice daily. Recommendation is to maintain blood pressures less 150/80. Further adjustment can be done by his PCP. Patient has hyperlipidemia. Patient will continue with Vascepa. Lipitor has been increased to Lipitor 80 mg 1 pill once daily. Patient has diabetes mellitus. Patient will continue with metformin 500 mg 1 pill twice daily. Blood sugar remained stable. Recommendation is to check hemoglobin A1c as an outpatient to monitor his progress. Recommendation is to maintain blood sugars less 140 fasting and less than 200 after meals. Further adjustment can be done by his PCP. Vital Signs/Physical Exam: Temp Pulse Resp BP Pulse Ox 97 F 72 14 118/91 H 95 01/19/18 04:00 01/19/18 08:28 01/19/18 06:00 01/19/18 08:28 01/18/18 20:00 General: Alert, In no apparent distress, Oriented x3, Cooperative HEENT: Atraumatic Neck: Supple, No Thyromegaly Respiratory: Clear to auscultation bilaterally Cardiovascular: Normal pulses, Regular rate/rhythm Gastrointestinal: Normal bowel sounds, Soft and benign, Non-distended, No tenderness, No masses, No rebound, No guarding Musculoskeletal: No erythema, No tenderness, No warmth Integumentary: No tenderness/swelling, No erythema, No warmth, No cyanosis Neurological: Normal speech, Normal strength at 5/5 x4 extr, Normal tone, Normal affect Lymphatics: No axilla or inguinal lymphadenopathy Laboratory Data at Discharge: WBC 8.5 K/uL (4.3-10.9) D 01/19/18 04:40 Hgb 13.5 g/dL (13.6-17.9) L 01/19/18 04:40 Hct 39.4 % (39.6-49.0) L 01/19/18 04:40 Plt Count 230 K/uL (152-406) 01/19/18 04:40 PT 11.6 SECONDS (9.5-12.5) 01/19/18 04:40 INR 0.98 01/19/18 04:40 APTT 30.4 SECONDS (24.3-36.9) 01/19/18 04:40 Sodium 139 mmol/L (136-145) 01/19/18 04:40 Potassium 3.7 mmol/L (3.5-5.1) 01/19/18 04:40 BUN 17 mg/dL (7-18) 01/19/18 04:40 Creatinine 0.80 mg/dL (0.55-1.3) 01/19/18 04:40 Glucose 109 mg/dL (74-106) H 01/19/18 04:40 Phosphorus 2.4 mg/dL (2.5-4.9) L 01/19/18 04:40 Magnesium 2.3 mg/dL (1.8-2.4) 01/19/18 04:40 Total Bilirubin 0.9 mg/dL (0.2-1.0) 01/19/18 04:40 AST 45 U/L (15-37) H 01/19/18 04:40 ALT 51 U/L (12-78) 01/19/18 04:40 Alkaline Phosphatase 73 U/L (45-117) 01/19/18 04:40 Troponin I 3.32 ng/mL (0.0-0.045) H* D 01/19/18 04:40 Triglycerides 159 mg/dL (<150) H 01/19/18 04:40 Cholesterol 161 mg/dL (<200) 01/19/18 04:40 HDL Cholesterol 32 mg/dL (40-60) L 01/19/18 04:40 Cholesterol/HDL Ratio 5.03 01/19/18 04:40 Home Medications: Icosapent Ethyl [Vascepa] 2 gm PO BID 07/29/16 Metformin HCl [Glucophage*] 500 mg PO BID 07/29/16 Metoprolol Succinate [Toprol Xl] 100 mg PO BID 07/29/16 Pantoprazole Sodium [Protonix] 40 mg PO DAILY 07/29/16 Aspirin [Aspir-Low] 81 mg PO BEDTIME 01/18/18 Losartan Potassium 12.5 mg PO DAILY 01/18/18 Atorvastatin Calcium [Lipitor] 80 mg PO BEDTIME #30 tab 01/19/18 Prasugrel Hydrochloride [Effient*] 10 mg PO DAILY #30 tab 01/19/18 New Medications: Atorvastatin Calcium [Lipitor] 80 mg PO BEDTIME #30 tab Prasugrel Hydrochloride [Effient*] 10 mg PO DAILY #30 tab Patient Discharge Instructions: 1. Patient will need to follow up his PCP in 1 week to follow up this hospitalization. 2. Patient presented with chest pain Patient had acute inferior wall myocardial infarction. Heart catheterization was done. Procedures included left heart catheterization, Coronary angiography , percutaneous coronary intervention, plain old balloon angioplasty of proximal right coronary, and intracoronary stenting of the left anterior descending LAD. Patient was found to have a thrombus within the proximal RCA stent. It was ballooned. Thrombus went away, excellent angiographically noted, so no restent was needed to the ostial stent. LAD had a long 70-80% lesion. This was stented. 2 stents were deployed. Patient tolerated procedure well. Patient denied any significant chest pain thereafter. At discharge patient will continue with Effient 10 mg daily, aspirin 81 mg daily, Lipitor 80 mg daily, Cozaar 12.5 mg daily and Metoprolol 100 mg one pill twice daily. He will follow up with Cardiology in 2 weeks. 3. Patient has hypertension. Recommendation is to continue with Cozaar 12.5 mg 1 pill daily and metoprolol 100 mg 1 pill twice daily. Recommendation is to maintain blood pressures less 150/80. Further adjustment can be done by his PCP. 4. Patient has hyperlipidemia. Patient will continue with Vascepa. Lipitor has been increased to Lipitor 80 mg 1 pill once daily. 5. Patient has diabetes mellitus. Patient will continue with metformin 500 mg 1 pill twice daily. Blood sugar remained stable. Recommendation is to check hemoglobin A1c as an outpatient to monitor his progress. Recommendation is to maintain blood sugars less 140 fasting and less than 200 after meals. Further adjustment can be done by his PCP. 6. Patient has GERD. Patient will continue with Protonix 40 mg 1 pill once daily. 7. Patient will continue with lifestyle modification education. Diet: AHA Activity: Ad shea Time spent managing pt's care (in minutes): 55
--- NOTE | 2018-01-19 12:42 | PN ---
Date of Progress Note: 01/19/2018 Subjective: Mr. Oliveira is a 52-year-old [place] male with history of coronary artery diseas e. He has an LAD stent. He has an ostial RCA stent. He came in with acute inferior GA with ST elev ation. Dr. Martinez found a thrombus in the right coronary artery and the stent. He is status post PT CA with successful resultant thrombus with . He also was found to have about a 70-80% long mid LAD lesion that was not the culprit lesion but this was stented as well with a 3.0 x 24 mm [employer] [address] stent. He tolerated the procedure well over 0% residual both lesion. He was observed overnight. He has no right groin hematoma. No complaints. Normal telemetry. He will be discharged home today on his home medications. I had initially taken him off Plavix because of a normal stress test a few months ago but now we will resume his Effient 10 mg daily, probably permanently this time in additio n to his home medication. The case was discussed with Dr. King. I will see the patient in 2 weeks . TERRI/OLEG Voice ID: [id number] Report ID: [id number]
== END 2018-01-19 11:15 | disposition home or self-care (01) | DRG 247 ==
LOC: ER 10:06 → ERHOLD 10:20 → 3RD-ICU 12:51
PROVIDERS: ADMIT Family Medicine; ATTEND Family Medicine
PROC: 027035Z Dilation of Coronary Artery, One Artery with Two Drug-eluting Intraluminal Devices, Percutaneous Approach (ICD-10-PCS; principal; 2018-01-18)
PROC: 02703ZZ Dilation of Coronary Artery, One Artery, Percutaneous Approach (ICD-10-PCS; 2018-01-18)
PROC: 4A023N7 Measurement of Cardiac Sampling and Pressure, Left Heart, Percutaneous Approach (ICD-10-PCS; 2018-01-18)
PROC: B2111ZZ Fluoroscopy of Multiple Coronary Arteries using Low Osmolar Contrast (ICD-10-PCS; 2018-01-18)
DX: I21.11 ST elevation (STEMI) myocardial infarction involving right coronary artery (principal); I25.10 Atherosclerotic heart disease of native coronary artery without angina pectoris; E11.9 Type 2 diabetes mellitus without complications; I08.1 Rheumatic disorders of both mitral and tricuspid valves; I10 Essential (primary) hypertension; E78.5 Hyperlipidemia, unspecified; K21.9 Gastro-esophageal reflux disease without esophagitis; E66.01 Morbid (severe) obesity due to excess calories; Z68.36 Body mass index [BMI] 36.0-36.9, adult; Z95.5 Presence of coronary angioplasty implant and graft; Z79.84 Long term (current) use of oral hypoglycemic drugs; Z87.891 Personal history of nicotine dependence
CPT/HCPCS: 36415; 71045; 80048; 80053; 80061; 80076; 82550; 82553; 83735; 83880; 84100; 84484; 85025; 85347; 85610; 85730; 92920; 92928; 93005; 93306; 93454; 94760; 99285; C1725; C1877; C1893; J0583; J1644; J2001; J2250; J2405; J3010; J7030